=== PATIENT | male | born 1960 | race Asian ===

== ENCOUNTER 2018-09-22 14:15 | Emergency (ER) | payer OTHER ==
[~2018-09-22] VITALS: Ht 167.6 cm; Wt 72.1 kg
[2018-09-22 14:39] LABS: POTASSIUM 3.7 mmol/L (3.6-5.2)
[2018-09-22 15:06] LABS: PLATELET COUNT 176 K/uL (142-355)
[2018-09-22 15:50] VITALS: BP 155/84; TEMP 97.5
== END 2018-09-22 15:50 | disposition other institution (70) ==
LOC: ED 14:15
PROVIDERS: Emergency Medicine
DX: G11.8 Other hereditary ataxias (principal); I10 Essential (primary) hypertension; E03.8 Other specified hypothyroidism; Z04.6 Encounter for general psychiatric examination, requested by authority
CPT/HCPCS: 80053; 81000; 85027; 93005; 99285